=== PATIENT | female | born 2000 | race Caucasian/White ===

== ENCOUNTER 2019-06-20 22:43 | Emergency (ER) | payer OTHER ==
[~2019-06-20] VITALS: Ht 170.2 cm; Wt 102.1 kg
[2019-06-20] MEDS ORDERED: TRAMADOL 50 MG50 MG PO (22:55)
[2019-06-20] MEDS ORDERED: KEFLEX500 M1 PO (22:55)
[2019-06-21 00:31] VITALS: BP 125/82
[2019-06-21] MEDS ORDERED: IBUPROFEN 800800 M1 PO (00:33)
== END 2019-06-21 00:30 | disposition home or self-care (01) ==
LOC: ER 22:43
DX: S09.8XXA Other specified injuries of head, initial encounter (principal); Z88.8 Allergy status to other drugs, medicaments and biological substances; Z91.011 Allergy to milk products; W00.0XXA Fall on same level due to ice and snow, initial encounter; Y93.21 Activity, ice skating; Y92.89 Other specified places as the place of occurrence of the external cause; Y99.8 Other external cause status